=== PATIENT | male | born 1990 | race Caucasian/White ===

== ENCOUNTER 2017-02-01 21:26 | Emergency (ER) | payer OTHER ==
[~2017-02-01] VITALS: Ht 175.3 cm; Wt 86.4 kg
[2017-02-01 21:28] VITALS: TEMP 98.9
[2017-02-01] MEDS ORDERED: NORCO 325 MG-51 TAB PO (22:53)
[2017-02-01 23:16] VITALS: BP 152/68; PULSE 101
== END 2017-02-01 23:16 | disposition home or self-care (01) ==
LOC: COL.ER 21:26
DX: S43.101A Unspecified dislocation of right acromioclavicular joint, initial encounter (principal); M25.561 Pain in right knee; M25.522 Pain in left elbow; W17.89XA Other fall from one level to another, initial encounter

== ENCOUNTER 2017-06-01 15:07 | Outpatient (RCR) | payer OTHER ==
[~2017-06-01 15:07] MED LIST: NORCO 325 MG-51 TAB PO
== END 2017-06-25 16:43 ==
LOC: WSPT 15:07
DX: S76.311A Strain of muscle, fascia and tendon of the posterior muscle group at thigh level, right thigh, initial encounter (principal); Z86.79 Personal history of other diseases of the circulatory system